=== PATIENT | male | born 1950 | race Caucasian/White ===

== ENCOUNTER 2019-06-12 21:26 | Emergency (ER) | payer MEDICARE, BC ==
[2019-06-12 22:09] LABS: ANION GAP 16.8; CHLORIDE,CL 90 mmol/L (101-111); SODIUM,NA 133 mmol/L (135-145)
--- NOTE | 2019-06-12 22:14 | EDM.PDOC ---
ED HPI GENERAL MEDICAL PROBLEM - General Chief Complaint: Drug or Alcohol Abuse Stated Complaint: AMBULANCE Time Seen by Provider: 06/12/19 21:30 Source of Information: Reports: Patient, EMS, Family, RN History Limitations: Reports: Altered Mental Status, Intoxication - History of Present Illness INITIAL COMMENTS - FREE TEXT/NARRATIVE: ED via [facility] with report of being intoxicated, drinking whiskey heavily today, and witnessed fall off barstool tonight and was unresponsive for "short"time. Family reports hx daily drinking, Usually not to this extreme. No report of estimated time of unresponsive ness No other injury reported. No obvious sign of head trauma. Not collared on arrival. Alert moving extremities with obvious intoxication and strong odor ETOH. Family report patient did not recognize son though no difficulty with daughter. GCS 14 on arrival - Related Data Allergies Allergy/AdvReac Type Severity Reaction Status Date / Time No Known Allergies Allergy Verified 06/12/19 21:29 Home Meds: Home Meds Albuterol [Ventolin HFA] 2 puff INH Q4HR PRN 03/06/19 [History] Naproxen Sodium [Aleve] 220 mg PO ASDIRECTED PRN 03/06/19 [History] Omeprazole 20 mg PO DAILY 03/06/19 [History] hydroCHLOROthiazide [Hydrochlorothiazide] 25 mg PO DAILY 03/06/19 [History] Clopidogrel Bisulfate [Clopidogrel] 75 mg PO DAILY 06/12/19 [History] Metoprolol Succinate [Toprol XL] 25 mg PO DAILY 06/12/19 [History] atorvaSTATin [Lipitor] 40 mg PO BEDTIME 06/12/19 [History] Past Medical History Respiratory History: Reports: None Gastrointestinal History: Reports: None - Past Surgical History Cardiovascular Surgical History: Reports: Coronary Artery Stent Social & Family History - Tobacco Use Smoking Status *Q: Current Status Unknown Tobacco Use Comment: says he quit - Recreational Drug Use Recreational Drug Use: No ED ROS GENERAL - Review of Systems Review Of Systems: Unable To Obtain - Physical Exam Exam: See Below Exam Limited By: No Limitations General Appearance: Alert, No Apparent Distress, Obese Eye Exam: Bilateral Eye: EOMI, PERRL Ears: Normal External Exam, Normal TMs Nose: Normal Inspection, Normal Mucosa, No Blood. No: Nasal Deformity, Nasal Swelling, Nasal Drainage Throat/Mouth: Normal Inspection, Normal Lips Head Exam: Atraumatic, Normocephalic Neck: Normal Inspection, Supple, Non-Tender, Full Range of Motion Respiratory/Chest: No Respiratory Distress, Lungs Clear, Normal Breath Sounds Cardiovascular: Normal Peripheral Pulses, Regular Rate, Rhythm GI/Abdominal: Normal Bowel Sounds (Male) Exam: No Hernia Neuro Exam (Abbreviated): Alert, Inattentive, Memory Loss Recent Events. No: Oriented (person only) Back Exam: Normal Inspection, Full Range of Motion. No: CVA Tenderness (L), CVA Tenderness (R) Extremities: Normal Inspection, Normal Range of Motion Psychiatric: Other (easily agitated, frequent swearing, briefly redirectable.) Skin Exam: Warm, Dry, Intact, Normal Color. No: Ecchymosis Course - Vital Signs Last Recorded V/S: Last Vital Signs Temp 97.4 F 06/12/19 21:30 Pulse 79 06/12/19 21:30 Resp 20 06/12/19 21:30 BP 127/74 06/12/19 21:30 Pulse Ox 91 L 06/12/19 23:36 - Orders/Labs/Meds Labs: Laboratory Tests 06/12/19 06/12/19 06/12/19 Range/Units 21:42 21:42 21:42 WBC 10.8 H (5.0-10.0) 10^3/uL RBC 4.74 (4.6-6.2) 10^6/uL Hgb 16.3 (14.0-18.0) g/dL Hct 46.1 (40.0-54.0) % MCV 97.3 (80-100) fL MCH 34.4 H (27.0-34.0) pg MCHC 35.4 H (33.0-35.0) g/dL Plt Count 169 (150-450) 10^3/uL Neut % (Auto) 53.9 (42.2-75.2) % Lymph % (Auto) 22.5 (20.5-50.1) % [place] % (Auto) 20.4 H (2-8) % Eos % (Auto) 2.6 (1.0-3.0) % Baso % (Auto) 0.6 (0.0-1.0) % Add Manual Diff Yes Neutrophils % (Manual) 61 (42-75) % Band Neutrophils % 3 % Lymphocytes % (Manual) 23 (20-50) % Atypical Lymphs % 3 % Monocytes % (Manual) 9 H (2-8) % Eosinophils % (Manual) 1 (1-3) % PT 9.9 (9.0-12.0) SEC INR 1.0 (0.9-1.2) Sodium 133 L (135-145) mmol/L Potassium 2.8 L (3.6-5.0) mmol/L Chloride 90 L (101-111) mmol/L Carbon Dioxide 29.0 (21.0-31.0) mmol/L Anion Gap 16.8 BUN 11 (7-18) mg/dL Creatinine 1.1 (0.6-1.3) mg/dL Est Cr Clr Drug Dosing TNP Estimated GFR (MDRD) > 60 BUN/Creatinine Ratio 10.00 Glucose 115 H (74-105) mg/dL Calcium 8.7 (8.4-10.2) mg/dl Total Bilirubin 1.3 H (0.2-1.0) mg/dL AST 76 H (10-42) IU/L ALT 69 H (10-60) IU/L Alkaline Phosphatase 132 H (42-121) IU/L Troponin I < 0.02 (0.00-0.02) ng/ml B-Natriuretic Peptide 12 (0-100) pg/ml Total Protein 7.4 (6.7-8.2) g/dl Albumin 3.4 (3.2-5.5) g/dl Globulin 4.0 Albumin/Globulin Ratio 0.85 Amylase 67 (28-100) U/L Lipase 43 (22-51) U/L Ethyl Alcohol 326 mg/dL Meds: Medications Discontinued Medications Generic Name Dose Route Start Last Admin Trade Name Freq PRN Reason Stop Dose Admin Haloperidol Lactate 1 mg 06/12/19 23:13 Haldol IVPUSH 06/12/19 23:14 ONETIME ONE Potassium Chloride 20 meq/ 100 mls @ 50 mls/hr 06/12/19 22:17 06/12/19 22:29 Premix IV 06/13/19 00:16 50 mls/hr ONETIME ONE Administration Sodium Chloride 1,000 mls @ 100 mls/hr 06/12/19 22:17 06/12/19 22:29 Normal Saline IV 06/13/19 08:16 100 mls/hr .BOLUS ONE Administration Lorazepam 1 mg 10/15/19 22:50 06/12/19 22:55 Ativan IVPUSH 06/12/19 22:51 1 mg ONETIME ONE Administration Lorazepam 1 mg 06/12/19 23:20 Ativan IVPUSH 06/12/19 23:21 ONETIME ONE - Radiology Interpretation Free Text/Narrative:: [facility] [place] [facility] Final Radiology Report Call: [phone] assistance Online chat: [email or web address] Name: RAFAEL ORTIZ Age: 68Years M Date: 06/12/2019 SSN: -- : [id number] Study: CT HEAD WO Requesting Physician: ADRIAN OJEDA Images: [id number] Addl Studies: Provided Clinical History: Contrast: Without Contrast Medium: Contrast Amount: Contrast Method: CONFIDENTIALITY STATEMENT This report is intended only for use by the referring physician, and only in accordance with law. If you received this in error, call [phone]. Page 1 of 1 PROCEDURE INFORMATION: Exam: CT Head Without Contrast Exam date and time: 06/12/2019 9:52 PM Clinical history: 68 years old, male; Injury or trauma; Injury history: Passed out and hit head, intoxicated, HX of cardiac stent; Initial encounter; Blunt trauma (contusions or hematomas) TECHNIQUE: Imaging protocol: Computed tomography of the head without contrast. Radiation optimization: All CT scans at this facility use at least one of these dose optimization techniques: automated exposure control; mA and/or kV adjustment per patient size (includes targeted exams where dose is matched to clinical indication); or iterative reconstruction. COMPARISON: No relevant prior studies available. FINDINGS: Brain: Typical for age. No hemorrhage. No evidence of acute infarct. No mass. Ventricles: No ventriculomegaly. Bones/joints: Unremarkable. Sinuses: No sinus fluid. Mastoid air cells: Unremarkable. Soft tissues: Unremarkable. IMPRESSION: No acute intracranial abnormality. Thank you for allowing us to participate in the care of your patient. Dictated and Authenticated by: Daniel Fofana MD 06/12/2019 10:12 PM Central Time ([place] & [place] C Cpine negative see report - Re-Assessments/Exams Free Text/Narrative Re-Assessment/Exam: 06/14/19 03:[address] Amol Mcfadden, Patient accepted for transfer pending results of cervical spine. Daughter signed consent for transfer. Tx via [facility]. Patient agitated, Ativan given, some improvement, less moving in bed and less swearing. Ontinues to be unaware of date, volume or loacation. Departure - Departure Time of Disposition: 01:30 Disposition: DC/Tfer to Acute Hospital 02 Condition: Good Clinical Impression: Alcohol abuse, Fall from chair, initial encounter - Discharge Information *PRESCRIPTION DRUG MONITORING PROGRAM REVIEWED*: Not Applicable *COPY OF PRESCRIPTION DRUG MONITORING REPORT IN PATIENT ROBERTA: Not Applicable Instructions: Alcohol Use Disorder Referrals: PCP,Unobtain [Primary Care Provider] - Forms: ED Department Discharge
[2019-06-12] MEDS ORDERED: Potassium Chloride 20 MEQ in Premix Bag 1 BAG IV ONE (22:17)
[2019-06-12] MEDS ORDERED: Sodium Chloride 0.9% 1,000 ML IV ONE (22:17)
[2019-06-12] MEDS ORDERED: LORazepam 2 MG/ML Syringe IVPUSH ONE ×2 (22:50→23:20)
[2019-06-12] MEDS ORDERED: Haloperidol Lactate 5 MG/ML SDV IVPUSH ONE (23:13)
== END 2019-06-13 00:19 ==
LOC: DL.ED 21:26
DX: F10.129 Alcohol abuse with intoxication, unspecified (principal); Y90.8 Blood alcohol level of 240 mg/100 ml or more; Z87.891 Personal history of nicotine dependence; Z95.5 Presence of coronary angioplasty implant and graft; Z79.899 Other long term (current) drug therapy; Z79.02 Long term (current) use of antithrombotics/antiplatelets; W07.XXXA Fall from chair, initial encounter
CPT/HCPCS: 36415; 70450; 72125; 80053; 82150; 83690; 83880; 84484; 85025; 85610; 93005; 96365; 96366; 96375; 99285; G0480; J2060; J3480; J7030; 99284

== ENCOUNTER 2019-10-03 12:04 | Emergency (ER) | payer MEDICARE, BC ==
--- NOTE | 2019-10-03 13:09 | EDM.PDOC ---
<Elmer Lynn - Last Filed: 10/03/19 13:33> ED HPI GENERAL MEDICAL PROBLEM - General Chief Complaint: Lower Extremity Injury/Pain Stated Complaint: BROKE/SPRAIN ANKLE Time Seen by Provider: 10/03/19 13:08 Source of Information: Reports: Patient, RN, RN Notes Reviewed History Limitations: Reports: No Limitations - History of Present Illness INITIAL COMMENTS - FREE TEXT/NARRATIVE: Patient presents to the ED after hurting his ankle on Tuesday evening. He was getting out of his pickup and his right foot got caught between the door and the running board and fell down. He has been able to walk on it with moderate pain but the pain and swelling was getting worse and came to the ED today. Onset Date: 10/01/19 Location: Reports: Lower Extremity, Right (ankle) Quality: Reports: Ache Improves with: Reports: None Worsens with: Reports: Movement Associated Symptoms: Denies: Confusion, Chest Pain, Cough, Shortness of Breath, Syncope, Weakness - Related Data Allergies Allergy/AdvReac Type Severity Reaction Status Date / Time No Known Allergies Allergy Verified 06/12/19 21:29 Home Meds: Home Meds Albuterol [Ventolin HFA] 2 puff INH Q4HR PRN 03/06/19 [History] Naproxen Sodium [Aleve] 220 mg PO ASDIRECTED PRN 03/06/19 [History] Omeprazole 20 mg PO DAILY 03/06/19 [History] hydroCHLOROthiazide [Hydrochlorothiazide] 25 mg PO DAILY 03/06/19 [History] Clopidogrel Bisulfate [Clopidogrel] 75 mg PO DAILY 06/12/19 [History] Metoprolol Succinate [Toprol XL] 25 mg PO DAILY 06/12/19 [History] atorvaSTATin [Lipitor] 40 mg PO BEDTIME 06/12/19 [History] Past Medical History Respiratory History: Reports: None Gastrointestinal History: Reports: None - Past Surgical History Cardiovascular Surgical History: Reports: Coronary Artery Stent Review of Systems - Review of Systems Review Of Systems: See Below Constitutional: Denies: Chills, Fever, Weakness Respiratory: Denies: Shortness of Breath, Wheezing, Cough Cardiovascular: Denies: Chest Pain, Edema, Lightheadedness, Palpitations, Syncope GI/Abdominal: Denies: Abdominal Pain, Constipation, Diarrhea, Nausea, Vomiting Genitourinary: Reports: No Symptoms Musculoskeletal: Reports: Joint Pain (right ankle), Joint Swelling (right ankle) , Muscle Pain (right ankle), Muscle Stiffness (right ankle) Skin: Reports: Bruising (right ankle). Denies: Cyanosis, Pallor, Diaphoresis, Rash Neurological: Denies: Confusion, Dizziness, Headache, Numbness, Syncope, Tingling Psychiatric: Reports: No Symptoms ED EXAM, GENERAL - Physical Exam Exam: See Below Exam Limited By: No Limitations General Appearance: Alert, WD/WN, No Apparent Distress Head: Atraumatic, Normocephalic Neck: Normal Inspection, Supple, Non-Tender, Full Range of Motion Respiratory/Chest: No Respiratory Distress, Lungs Clear, Normal Breath Sounds, No Accessory Muscle Use, Chest Non-Tender Cardiovascular: Normal Peripheral Pulses, Regular Rate, Rhythm, No Edema, No Gallop, No JVD, No Murmur, No Rub Extremities: Leg Pain (right ankle), Limited Range of Motion (right ankle) Neurological: Alert, Oriented, CN II-XII Intact, Normal Cognition, Normal Gait, Normal Reflexes, No Motor/Sensory Deficits Psychiatric: Normal Affect, Normal Mood Skin Exam: Warm, Dry, Intact, Ecchymosis (right ankle and foot) Departure - Departure Disposition: Home, Self-Care 01 Clinical Impression: Closed fracture of right distal fibula Qualifiers: Encounter type: initial encounter Fracture morphology: other fracture Qualified Code(s): S82.831A - Other fracture of upper and lower end of right fibula, initial encounter for closed fracture - Discharge Information Instructions: Crutch Use, Adult, [id number], Ankle Fracture, Cast or Splint Care, Adult Forms: ED Department Discharge Additional Instructions: Rx: Bonnyman (Hydrocodone) 5mg/325mg *Do not drive while taking this medication. Use a stool softener to prevent constipation from this medication. Call [phone] today to schedule an appointment at [facility] in [place]. Sepsis Event Note - Focused Exam Date Exam was Performed: 10/03/19 Time Exam was Performed: 13:33 <Vitaly Singh - Last Filed: 10/03/19 13:45> Past Medical History Cardiovascular History: Reports: CAD, High Cholesterol, Hypertension Respiratory History: Reports: Asthma Gastrointestinal History: Reports: GERD Social & Family History - Family History Family Medical History: Noncontributory Review of Systems - Review of Systems Review Of Systems: Comprehensive ROS is negative, except as noted in HPI. ED TRAUMA EXTREMITY PROCEDURES - Splinting Right Lower Extremity Splint Site: Right ankle Pre-Procedure NV Status: Normal Post-Procedure NV Status: Normal Splint Material: Fiberglass Splint Design: Posterior Applied & Form Fitted By: Nurse Provider Post-Splint Application NV Check: NV Status Normal, Good Position Complications: No Course - Radiology Interpretation Free Text/Narrative:: [facility] [place] [facility] Final Radiology Report Call: [phone] assistance Online chat: [email or web address] Name: RAFAEL ORTIZ Age: 69Years M Date: 10/03/2019 SSN: -- : 1950 Study: XR ANKLE COMPLETE MIN 3 VIEWS RIGHT Requesting Physician: VITALY SINGH Images: 3 Addl Studies: Provided Clinical History: Contrast: Contrast Medium: Contrast Amount: Contrast Method: CONFIDENTIALITY STATEMENT This report is intended only for use by the referring physician, and only in accordance with law. If you received this in error, call [phone]. Page 1 of 1 PROCEDURE INFORMATION: Exam: XR Right Ankle Exam date and time: 10/03/2019 12:18 PM Age: 69 years old Clinical indication: Pain; Ankle; Right TECHNIQUE: Imaging protocol: XR Right ankle. Views: 3 or more views. COMPARISON: No relevant prior studies available. FINDINGS: Bones/joints: There is oblique fracture of distal fibula with mild lateral displacement of distal fracture fragment. Ankle mortise appears intact. Small Achilles insertion enthesophyte. Soft tissues: There appears to be generalized edema with more focal swelling along lateral malleolus. IMPRESSION: Mildly displaced distal fibular fracture. Thank you for allowing us to participate in the care of your patient. Dictated and Authenticated by: Dulce Chung MD 10/03/2019 1:07 PM Central Time ([place] & [place]) - Re-Assessments/Exams Free Text/Narrative Re-Assessment/Exam: 10/03/19 13:18 I personally performed or re-performed the physical examination and medical decision making. I have verified all student documentation or findings, including history, physical exam and/or medical decision making. Departure - Departure Time of Disposition: 14:00 Condition: Good - Discharge Information *PRESCRIPTION DRUG MONITORING PROGRAM REVIEWED*: Not Applicable *COPY OF PRESCRIPTION DRUG MONITORING REPORT IN PATIENT ROBERTA: Not Applicable Sepsis Event Note - Focused Exam Date Exam was Performed: 10/03/19 Time Exam was Performed: 13:45
== END 2019-10-03 13:45 | disposition home or self-care (01) ==
LOC: DL.ED 12:04
DX: S82.831A Other fracture of upper and lower end of right fibula, initial encounter for closed fracture (principal); V58.4XXA Person boarding or alighting a pick-up truck or van injured in noncollision transport accident, initial encounter; Y92.812 Truck as the place of occurrence of the external cause
CPT/HCPCS: 29515; 73610-RT; 99283-25

== ENCOUNTER 2022-05-05 06:21 | Day surgery (SDC) | payer MEDICARE, BC ==
[~2022-05-05 06:21] MED LIST: Sodium Chloride 0.9% 10 ML Syringe FLUSH PRN
[2022-05-05] MEDS ORDERED: Dexamethasone 4 MG/ML SDV IV ONE (06:22)
[2022-05-05] MEDS ORDERED: Midazolam 1 MG/ML 2 ML SDV IV ONE (06:22)
[2022-05-05] MEDS ORDERED: Sodium Chloride 0.9% 10 ML Syringe IV ONE (06:22)
[2022-05-05] MEDS ORDERED: Proparacaine 0.5% Ophth Soln 15 ML Bottle EYELF ONE (06:30)
[2022-05-05] MEDS ORDERED: Moxifloxacin 0.5% Ophth Soln 3 ML Bottle EYELF ONE (06:30)
[2022-05-05] MEDS ORDERED: Tropicamide 1% Ophth Soln 15 ML Bottle EYELF ONE (06:30)
[2022-05-05] MEDS ORDERED: Povidone-Iodine 5% Sterile Ophth Soln 30 ML Bottle EYELF ONE ×2 (06:30→07:51)
[2022-05-05] MEDS ORDERED: Cataract Ophth Solution EYELF ONE (06:30)
[2022-05-05] MEDS ORDERED: Phenylephrine 10% Ophth Soln 5 ML Bot EYELF PRN (06:30)
[2022-05-05] MEDS ORDERED: Ondansetron 4 MG/2 ML SDV IVPUSH PRN (06:30)
[2022-05-05] MEDS ORDERED: Timolol Maleate 0.5% Ophth Soln 5 ML Bottle EYELF ONE (06:30)
[2022-05-05] MEDS ORDERED: Acetaminophen/Codeine 300-30 MG Tab PO PRN (06:30)
[2022-05-05] MEDS ORDERED: Acetaminophen 325 MG Tab PO PRN (06:30)
[2022-05-05] MEDS ORDERED: Tetracaine HCl/PF 0.5% 4 ML Bottle EYELF ONE ×2 (07:26→07:51)
[2022-05-05] MEDS ORDERED: Apraclonidine 0.5% Ophth Soln 5 ML Bot EYELF ONE (07:52)
[2022-05-05] MEDS ORDERED: Diclofenac Sodium 0.1% Ophth Soln 5 ML Bottle EYELF ONE (07:53)
[2022-05-05] MEDS ORDERED: Dexamethasone/Neomycin/Polymyxin B Ophth Oint 3.5 GM Tube EYELF ONE (07:53)
[2022-05-05] MEDS ORDERED: Balanced Salt Solution Ophth Irrig 500 ML Bottle IOCULAR ONE (07:54)
[2022-05-05] MEDS ORDERED: Lidocaine 1% 30 ML SDV ONE (07:54)
[2022-05-05] MEDS ORDERED: Vancomycin 500 MG SDV EYELF ONE (07:55)
[2022-05-05] MEDS ORDERED: Chondroitin Sulfate/Hyaluronate Sodium Ophth Inj 0.75 ML Syringe EYELF ONE (07:56)
[2022-05-05] MEDS ORDERED: Dexamethasone 4 MG/ML SDV IOCULAR ONE (07:58)
== END 2022-05-05 09:05 | disposition home or self-care (01) ==
LOC: DL.SDS 06:21
PROVIDERS: ATTEND Ophthalmology
DX: E11.36 Type 2 diabetes mellitus with diabetic cataract (principal); H25.812 Combined forms of age-related cataract, left eye; E78.5 Hyperlipidemia, unspecified; I25.10 Atherosclerotic heart disease of native coronary artery without angina pectoris; K21.9 Gastro-esophageal reflux disease without esophagitis; E66.09 Other obesity due to excess calories; I25.83 Coronary atherosclerosis due to lipid rich plaque; E87.6 Hypokalemia; E87.1 Hypo-osmolality and hyponatremia; Z98.890 Other specified postprocedural states; Z87.891 Personal history of nicotine dependence; Z79.02 Long term (current) use of antithrombotics/antiplatelets; Z79.82 Long term (current) use of aspirin; Z79.899 Other long term (current) drug therapy; Z68.33 Body mass index [BMI] 33.0-33.9, adult; Z87.81 Personal history of (healed) traumatic fracture
CPT/HCPCS: 00142; 66984; A9270; J1100; J2250; J3370; J3490; V2632

== ENCOUNTER 2022-08-12 05:27 | Day surgery (SDC) | payer MEDICARE, BC ==
[2022-08-12] MEDS ORDERED: fentaNYL 100 MCG/2 ML SDV IV ONE ×3 (05:28→06:29)
[2022-08-12] MEDS ORDERED: Midazolam 1 MG/ML 2 ML SDV IV ONE ×3 (05:28→06:31)
[2022-08-12] MEDS ORDERED: Dextrose 5%-0.45% NaCl 1,000 ML IV SCH (06:00)
[2022-08-12] MEDS ORDERED: Midazolam 1 MG/ML 2 ML SDV ONE (06:03)
[2022-08-12] MEDS ORDERED: fentaNYL 100 MCG/2 ML SDV ONE (06:03)
[2022-08-12] MEDS ORDERED: Sodium Chloride 0.9% 10 ML Syringe FLUSH SCH (09:00)
== END 2022-08-12 08:35 | disposition home or self-care (01) ==
LOC: DL.ENDO 05:27
PROVIDERS: ATTEND Internal Medicine Gastroenterology
DX: K31.7 Polyp of stomach and duodenum (principal); K29.50 Unspecified chronic gastritis without bleeding; K25.9 Gastric ulcer, unspecified as acute or chronic, without hemorrhage or perforation; E66.09 Other obesity due to excess calories; D63.1 Anemia in chronic kidney disease; I25.10 Atherosclerotic heart disease of native coronary artery without angina pectoris; N18.9 Chronic kidney disease, unspecified; Z68.31 Body mass index [BMI] 31.0-31.9, adult; Z95.5 Presence of coronary angioplasty implant and graft
CPT/HCPCS: 87077; 88305; 88342; J2250; J3010; J7042

== ENCOUNTER 2022-08-13 05:58 | Day surgery (SDC) | payer MEDICARE, BC ==
[2022-08-13] MEDS ORDERED: fentaNYL 100 MCG/2 ML SDV IV ONE ×2 (05:59→07:22)
[2022-08-13] MEDS ORDERED: Midazolam 1 MG/ML 2 ML SDV IV ONE ×3 (05:59→07:27)
[2022-08-13] MEDS ORDERED: Dextrose 5%-0.45% NaCl 1,000 ML IV SCH (06:15)
[2022-08-13] MEDS ORDERED: Midazolam 1 MG/ML 2 ML SDV ONE (06:22)
[2022-08-13] MEDS ORDERED: fentaNYL 100 MCG/2 ML SDV ONE (06:23)
== END 2022-08-13 09:22 | disposition home or self-care (01) ==
LOC: DL.ENDO 05:58
PROVIDERS: ATTEND Internal Medicine Gastroenterology
DX: K62.1 Rectal polyp (principal); K64.8 Other hemorrhoids; K57.30 Diverticulosis of large intestine without perforation or abscess without bleeding; E66.09 Other obesity due to excess calories; I25.10 Atherosclerotic heart disease of native coronary artery without angina pectoris; D63.1 Anemia in chronic kidney disease; N18.9 Chronic kidney disease, unspecified; Z68.31 Body mass index [BMI] 31.0-31.9, adult
CPT/HCPCS: 88305; J2250; J3010; J7042